=== PATIENT | male | born 1970 | race Caucasian/White ===

== ENCOUNTER 2023-12-11 11:18 | Emergency (ER) | payer OTHER, SELFPAY ==
[2023-12-11 11:22] VITALS: BP 146/96
[2023-12-11 12:13] VITALS: BP 145/84
--- NOTE | 2023-12-11 12:50 | ED.CVA ---
History of Present Illness
General
Chief Complaint: Dizziness
Source: patient
Exam Limitations: none
Time Seen by Provider: 12/11/23 12:27
Nursing documentation reviewed up to this point in time: agreed with
Onset of Stroke Symptoms
Onset of symptoms known: Yes
Date of onset of symptoms: 12/10/23
Time pt last seen normal is known: No
Travel History
Have you had any contact with someone who has COVID-19?: No
Do you have any symptoms of coronavirus? Fever > 100 degrees, chills, cough, shortness of breath, sore throat, loss of taste or smell, muscle aches, or headache?: No
History of Present Illness
History of Present Illness:
The patient is a 53-year-old man with a past medical history of hypertension, coronary artery disease and pao-nkojbyr-gabekdqgp diabetes who presents with sudden onset of dizziness that started yesterday at around 11 AM. Patient reports that the
dizziness has not gone away and has been constant. It is associated with nausea and occasional vomiting. Patient denies vision changes. He reports pressure behind his right eye which she describes as intermittent and currently gone. In addition,
he has had constant numbness in his right upper cheek but denies any other areas of numbness. He denies weakness. He denies fever and rash. He reports he has had vertigo in the past but never had associated cheek numbness. Patient denies a
history of smoking. He denies a history of stroke.
Past History
Past History
ED Past Medical History: CAD, HTN and NIDDM
ED Past Surgical History: Cardiac
Social History
Tobacco: Non-smoker
Alcohol: Occasional
Drug: None
Personal: Other
Living: with family
Employment: Other
Family History
Family History: Other
Review of Systems
Review of Systems
Allergies reviewed?: Yes
All Other Systems: ROS reviewed and negative except as documented in HPI and ROS
Constitutional: Reports no symptoms
EENT: Reports no symptoms
Respiratory: Reports no symptoms
Cardiac: Reports no symptoms
ABD/GI: Reports nausea and vomiting
: Reports no symptoms
Musculoskeletal: Reports no symptoms
Neurological: Reports dizzy and headache
Endocrine: Reports no symptoms
Hematologic/Lymphatic: Reports no symptoms
Psychiatric: Reports no symptoms
Phy Exam
Physical Exam
Physical Exam:
Physical Exam
General: no apparent distress, not acutely ill. Well appearing
Neck: supple. no meningeal signs. normal psoterior pharynx
Heart: s1/s2 regular rate and rhythm, no murmur. equal radial pulses.
Lungs: no acute respiratory distress. clear bilaterally
Abdomen: normal bowel sounds. not tender. no CVAT
Neuro: alert and orientedx3. no focal neurological deficits. Extraocular muscles intact. 5 out of 5 strength in all extremities. Normal [id number]. Cranial nerves equal and symmetric bilaterally. Isolated
diminished sensation of right upper cheek. Equal sensation in arms and legs bilaterally.
Skin: no rash
Psychiatric: well kept. interactive and cooperative
Extremities: no edema. no calf tenderness. negative homans. good distal pulses
Course
Orders/Labs/Results
Orders:
Orders
12/11/23 11:27
CT Head W/o Iv Contrast Urgent
Comment:
Reason For Exam: dizziness
12/11/23 12:39
Electrocardiogram (*1) Urgent
Reason for Study: Vertigo / Dizzy
EKG- Treatment ONCE
PT Consult [Pt Eval And Treat] Urgent
Activity Level: Out of Bed-Early Mobility
12/11/23 12:55
Alcohol Urgent
Cardiovascular Evaluation Urgent
Comment: ADD ON
Complete Blood Count/With Diff Urgent
Comprehensive Metabolic Panel Urgent
Erythrocyte Sed Rate Urgent
Comment: ADD ON
Ferritin Urgent
Comment: ADD ON
Folate Urgent
Comment: ADD ON
Glycohemoglobin (HgbA1c) Urgent
TSH Reflex To Free T4 Urgent
Comment: ADD ON
Vitamin B12 Urgent
Comment: ADD ON
12/11/23 13:15
Add On- LAB Routine
Comments:: Please add to today's labs or draw as routine
Tests Added?: TSH reflex, Ferritin, Folate, Vit. B12, ESR, UDS, EtOH
12/11/23 13:16
Consult Neurology [NEUROLOGY CONSULT] Urgent
Consulting Provider: Herberth Lynn
Was physician already notified: Yes
Reason for consult: dizzy
12/11/23 13:34
Prochlorperazine [Compazine] 10 mg IV NOW STA
dimenhyDRINATE 50 mg IV NOW STA
12/11/23 13:37
Meclizine [Antivert] 25 mg PO NOW STA
12/11/23 13:39
MR Brain Without Contrast Routine
Comment:
Reason For Exam: dizziness
Recent pill cam endoscopy?: No
12/11/23 13:41
MA [place] Routine
Comment:
Reason For Exam: intracranial stenosis
Recent pill cam endoscopy?: No
MA Neck With Contrast Routine
Comment:
Reason For Exam: stenosis
Recent pill cam endoscopy?: No
12/11/23 13:43
Add On- LAB Routine
Comments:: Please add to today's labs or draw as routine
Tests Added?: TSH reflex, Ferritin, Folate, Vit. B12, ESR
Lorazepam [Ativan] 1 mg PO NOW STA
12/11/23 13:59
Add On- LAB Routine
Tests Added?: lipid panel, hbA1c
12/11/23 15:28
Urine Drug Abuse Screen Routine
12/11/23 15:46
Lorazepam [Ativan] 1 mg .ROUTE .STK-MED ONE
12/11/23 22:00
Meclizine [Antivert] 25 mg PO Q8HPRN PRN
Abnormal Lab Results
12/11/23 12/11/23
12:55 12:57
MCV 79.5 L fL
(80.0-94.0)
MCHC 37.4 H g/dL
(33.0-37.0)
MPV 11.9 H fL
(7.4-10.4)
Absolute Lymphs (auto) 1.1 L 10^3/uL
(1.2-3.4)
Immature Gran % 0.6 H %
(0-0.5)
Neutrophils % 78.7 H %
(42.2-75.2)
Lymphocytes % 15.2 L %
(20.5-51.1)
Sodium 130 L mmol/L
(135-145)
BUN 25 H mg/dl
(9-20)
Glucose 302 H mg/dl
(70-99)
ALT 55 H U/L
(0-50)
Triglycerides 170 H mg/dl
(10-149)
Total Cholesterol 235 H mg/dl
(50-199)
VLDL Cholesterol, Calc 34 H mg/dl
(0-30)
POC Glucose 294 H mg/dl
(70-99)
12/11/23 12:55
12/11/23 12:55
Vital Signs
Initial and Last Documented VS:
Initial Vital Signs
Temp Pulse Resp BP Pulse Ox
97.9 F 81 16 146/96 98
12/11/23 11:22 12/11/23 11:22 12/11/23 11:22 12/11/23 11:22 12/11/23 11:22
Last Documented Vital Signs
Temp Pulse Resp BP Pulse Ox
97.9 F 110 16 130/71 99
12/11/23 11:22 12/11/23 18:25 12/11/23 18:25 12/11/23 18:25 12/11/23 18:25
MDM/Problems Addressed
Differential Diagnosis Includes:
Atypical migraine, benign positional vertigo, CVA
MDM/Problems Addressed:
Patient presents with acute dizziness and numbness of right cheek as well as pressure behind right eye
Chronic conditions affecting care: HTN and CAD
Acute Exacerbation and/or Progression of Chronic Illness:
Patient is acutely hypertensive, which may be contributing to his dizziness and headache
Acute Exacerbation and/or Progression of Chronic Illness: HTN
*Radiology
Radiology exam reviewed: radiology read reviewed
*Pulse Oximetry
Patient hypoxic: no
*EKG
Interpreted by ED Provider?: Yes
Interpretation: normal
Comparison EKG: changes noted
Rate: normal
Rhythm: sinus
[place]: normal axis
Interval: first degree heart block
QRS Pattern: normal QRS
Ischemia: no ischemia
*Finished Goods Stock Clerk Interpretation
Rate: normal
Interpretation: normal
Rhythm: sinus
*Critical Care Note
Total Time (30-74mins, 75-104mins- exclusive of procedures): Not Applicable
Data Reviewed
Review of Other/Old Records Reveals: Discharge Summary (Discharge summary reviewed from hospitalist from December 2014 when patient was admitted for uncontrolled high blood pressure and diabetes)
Source: patient
Patient Management
Discussion with other providers: Other (Dr Lynn)
Escalation/DeEscalation of care consider admission/obs:
Patient remains well-appearing for hours. He is walking around steadily. MRI report reviewed with Dr. Lewis from neurology who feels patient can safely go home. There is no sign of acute stroke. Symptoms are likely due to benign vertigo.
ED Attending Note
-
Portions of this chart may have been created with voice recognition software.� Occasional wrong word or��sound alike� substitutions may have occurred due to the inherent limitations of voice recognition software.
Discharge Plan
Departure
Patient Disposition: Home (Routine Discharge)
Date of Disposition: 12/11/23
Time of Disposition: 18:22
Patient with high blood pressure during this ER visit?: Yes
Condition: Good
Covid-19: Not Applicable
Discharge Problem:
Dizziness
Instructions: Dizziness, BLOOD PRESSURE
Prescriptions:
New
meclizine 50 mg tablet
50 mg PO BID PRN (Reason: dizziness) Qty: 14 0RF
prochlorperazine maleate [Compazine] 10 mg tablet
10 mg PO BID PRN (Reason: nausea and vomiting) Qty: 14 0RF
No Action
cyclobenzaprine 10 MG tablet
10 mg PO DAILYPRN PRN (Reason: muscle pain)
acetaminophen 325 MG tablet
650 mg PO Q4HPRN PRN (Reason: pain)
fexofenadine [Linnette] 180 MG tablet
180 mg PO DAILYPRN PRN (Reason: allergies)
exenatide microspheres [Bydureon] 2 MG suspension,extended rel recon
2 mg SQ .EVERY 2 WEEKS
oxycodone 5 MG tablet
5 mg PO Q4HPRN PRN (Reason: moderate pain) Qty: 14 0RF
hydrochlorothiazide 25 MG tablet
25 mg PO DAILY Qty: 30 0RF
carvedilol 3.125 MG tablet
3.125 mg PO BID Qty: 60 0RF
metformin 750 MG tablet extended release 24 hr
750 mg PO BID Qty: 60 0RF
insulin glargine [Lantus Solostar U-100 Insulin] 300 UNITS/3 ML insulin pen
10 units SC HS Qty: 1 0RF
Referrals:
Cristiano Lozano DO [Family Provider] -
Activity Restrictions/Additional Instructions:
Please follow up with physical therapy if your dizziness continues after another 24 hours. Call them at [phone] to schedule an appointment
Interventions
Interventions:
*Risk Screen - Suicide Last Done: 12/11/23 11:22
*General Assessment Last Done: 12/11/23 11:22
*Neglect/Abuse Screening Last Done: 12/11/23 11:22
ED- Fall Risk Assessment Last Done: 12/11/23 18:36
*ED COVID-19 Vaccine History Last Done: 12/11/23 12:19
*Nursing Disposition Last Done: 12/11/23 18:36
ED- Neurological Assessment Last Done: 12/11/23 11:34
ED- Cardiac Assessment Last Done: 12/11/23 12:57
ED Swallowing Screen Last Done: 12/11/23 14:00
Discharge Date and Time
Discharge Date/Time: 12/11/23 18:37
Print Language: SAMI
[2023-12-11 12:58] LABS: Glucose - Point of Care 294 mg/dl (70-99)
[2023-12-11 13:03] LABS: % Basophils 0.4 % (0-2); % Eosinophils 0.3 % (0-6); % Immature Granulocytes 0.6 % (0-0.5); % Lymphocytes 15.2 % (20.5-51.1); % Monocytes 4.8 % (1.7-9.3); % Neutrophils 78.7 % (42.2-75.2); Absolute Lymphocytes 1.1 10^3/uL (1.2-3.4); Absolute Monocytes 0.4 10^3/uL (0.1-0.6); Absolute Neutrophils 5.7 10^3/uL (1.4-6.5); Hematocrit 43.1 % (39.0-52.0); Hemoglobin 16.1 g/dL (13.0-18.0); Mean Corp Hgb Conc. 37.4 g/dL (33.0-37.0); Mean Corpuscular Hgb 29.7 pg (27.0-31.0); Mean Corpuscular Volume 79.5 fL (80.0-94.0); Mean Platelet Volume 11.9 fL (7.4-10.4); Nucleated Red Blood Cells % 0 % (-); Platelet Count 177 10^3/uL (130-400); Red Blood Cell Count 5.42 10^6/uL (4.70-6.10); Red Cell Dist. Width 12.9 % (11.5-14.5); White Blood Cell Count 7.3 10^3/uL (4.8-10.8)
--- NOTE | 2023-12-11 13:14 | CON.NEURO4 ---
Addendum entered and electronically signed by Herberth Lynn MD 12/11/23 14:29:
Studies reviewed.
I have personally examined the patient. I reviewed and agree with the CORK TIPPER's Note.
My addenda:
Awake, alert, interactive. No acute distress.
Speech intact.
Follows 2-step requests w/o difficulty. No tremor.
Extra-ocular movements grossly intact.
Facial movements full and symmetric. Hearing intact to normal conversational volume.
Normal UE movements bilaterally.
Neck: full ROM.
Chest: no dyspnea
Heart: no JVD
Ext: (-) Clubbing, (-) Cyanosis, (-) Edema
IMPRESSIONS/RECOMMENDATIONS:
Abrupt onset of dizziness which has been crescendo decrescendo and at the onset associated with head discomfort
Differential diagnosis includes migraine with aura (vestibular migraine) although the patient's worsening intermittently at times suggests an ongoing process which is unstable
Check MRI of brain with MRA head and neck to better evaluate for the possibility of stroke
Continue aspirin
Initiate clopidogrel without load, until better understanding of ischemic lesion by MRI of brain
Goal of tension as patient symptomatology is greater than 24 hours since onset
Provide prochlorperazine to remediate the patient's nausea
Provide meclizine 25 mg as the patient wishes to avoid to significant side effects with same previously
Physical therapy evaluations
Consider orthostatic blood pressures
D/W patient / family
All questions answered.
Will continue to follow patient.
Original Note:
Documented by User: Osiris Faustin NP 12/11/23 13:58
Consultation - Neurology 4
-
CONSULTING PHYSICIAN: Herberth Lynn MD
REFERRING PHYSICIAN: CELY/Dr. Patterson
DICTATED BY: RACHELLE Silva
DATE/TIME OF REQUEST: 12/11/23
DATE/TIME OF CONSULTATION: 12/11/23
Reason for Consultation: Dizziness
History of Present Illness:
This is a 53-year-old male who has presented to the hospital with report of dizziness, headache, and numbness. Patient reports that he was in his usual state yesterday morning (12/10/23). Around 1100 yesterday, he reports suddenly developing a
headache behind his right eye. Moments later he developed a dizzy sensation that he describes as 'light-headed.' And then he developed numbness around his mouth, nose, and below his right eye. His headache resolved but his dizziness and numbness has
continued, fluctuating in severity. The dizziness is constant and worsens with walking. When it is severe, his gait is off-balance and he cannot ambulate, but he denies falling. He reports constant nausea, he vomited once yesterday and twice today.
CT head was obtained on arrival to the ER and is negative for any acute abnormalities. Physical therapy evaluated the patient and did not find anything supportive of peripheral vertigo. His blood sugar is 301.
He denies any vision changes, speech/swallow difficulty, tinnitus, hearing changes, chest pain, palpitations, and shortness of breath. He reports having BPPV once in the past, that felt different than this. He felt weird after taking Dramamine in
the past but he tolerates meclizine. He had facial numbness once in the past when he had COVID, but it was not associated with a headache. He reports that his blood sugar has been this elevated in the past and was not associated with these symptoms.
He denies any history of TIA, stroke, migraine, recent illness, or changes in his medications. He is taking aspirin 81mg daily for cardiac purposes.
Past Medical History: HTN, CAD, NIDDM requiring insulin, BPPV
Surgical History: CABG, cholecystectomy
Family History: Reviewed and noncontributory.
Social History: Denies tobacco and illicit drug use. Occasional alcohol.
Allergies: No known allergies.
Home Medications: See below.
Review of Symptoms:
Patient denies any fever, chest pain, shortness of breath, or symptoms.
�Per the HPI.�All systems are reviewed negative except above.
Physical Exam:
The patient is afebrile, abdomen is nondistended, breathing is unlabored, skin is warm and dry, no edema.
NIH Stroke Scale:
I performed the NIH stroke scale on the patient on 12/11/23 at 1330. The patient scored 0 points on the NIH stroke scale assessment, which were assigned as follows: See below.
Neurologic Examination:
The patient is awake, alert and oriented x 3. He is able to follow commands and answer questions appropriately. There is no aphasia or dysarthria. On cranial nerve assessment, pupils are 3 mm bilateral, round and reactive to light and
accommodation. Visual mendoza are full. Extraocular movements are intact. There is no facial asymmetry. Hearing is intact bilaterally to normal conversation volume. Tongue palate and uvula are midline. Sternocleidomastoid strengths are full
bilaterally. Motor strengths are 5/5 bilateral upper and lower extremities on medical research [place] scale. There is no drift or involuntary movement noted. Deep tendon reflexes are 1+ bilateral upper and lower extremities and Babinski is absent
bilaterally. There was no extinction noted on double simultaneous stimulation. Coordination is intact by finger to nose bilaterally.
Lab Results: See below.
Neuro Imaging:
1. CT Head 12/11/23: No acute intracranial abnormality. Mild chronic senescent changes, as detailed above.
Differentials for the patient's presentation include:
1. Concern for small posterior ischemic infarct given significant stroke risk factors and persistence of symptoms.
2. Vestibular migraine possible.
3. No signs/symptoms less supportive of BPPV or vestibular neuritis.
Patient has the following risk factors for their symptoms: HTN, HLD, NIDDM
IV Tenecteplase/IAT candidacy: Not a candidate due to unclear diagnosis, outside of time window, NIHSS 0.
Recommendations:
-Continue aspirin 81mg daily.
-MRI brain noncontrast, MRA head/neck ordered/pending. Lorazepam 1mg on-call for MRI for claustrophobia.
-Provide prochlorperazine 10mg IV x1 now for headache. Provide meclizine 25mg PO now and q8hrs PRN dizziness.
-Goal normotension.
-If MRI brain demonstrates a stroke, LDL goal will be <70. Lipid panel pending.
-Goal normoglycemia, hbA1c is pending.
-Provide patient with a stroke education packet.
-NIHSS and neurological checks per unit guidelines.
-PT evaluations.
-DVT prophylaxis.
-Will follow pending results.
Discussed patient care with: Dr. Lynn, the patient, patient's spouse
Vital Signs and Labs
-
Vital Signs and Labs:
Vital Signs
Temp Pulse Resp BP Pulse Ox
97.9 F 86 18 145/84 98
12/11/23 11:22 12/11/23 12:15 12/11/23 12:15 12/11/23 12:13 12/11/23 12:15
Lab Results
12/11/23 12:55
12/11/23 12:55
Sodium 130 mmol/L (135-145) L 12/11/23 12:55
Potassium 4.3 mmol/L (3.5-5.1) 12/11/23 12:55
BUN 25 mg/dl (9-20) H 12/11/23 12:55
Glucose 302 mg/dl (70-99) H 12/11/23 12:55
Calcium 9.3 mg/dl (8.4-10.2) 12/11/23 12:55
Medications
-
Active Medications
Generic Name Dose Route Start Last Admin
Trade Name Freq PRN Reason Stop Dose Admin
Meclizine HCl 25 mg 12/11/23 22:00
Meclizine 25 Mg Tablet PO 01/08/24 21:59
Q8HPRN PRN
dizziness
Home Medications
�Medication �Instructions �Recorded
acetaminophen 325 mg tablet 650 mg PO Q4HPRN PRN pain 12/11/14
cyclobenzaprine 10 mg tablet 10 mg PO DAILYPRN PRN muscle pain 12/11/14
exenatide microspheres 2 mg 2 mg SQ .EVERY 2 WEEKS 12/11/14
subcutaneous extended release
suspension (Bydureon)
fexofenadine 180 mg tablet 180 mg PO DAILYPRN PRN allergies 12/11/14
(Linnette)
carvedilol 3.125 mg tablet 3.125 mg PO BID #60 tabs 12/16/14
hydrochlorothiazide 25 mg tablet 25 mg PO DAILY ##30 12/16/14
insulin glargine 100 unit/mL (3 10 units (0.1 mL) SC HS ##1 12/16/14
mL) subcutaneous pen (Lantus
Solostar U-100 Insulin)
metformin 750 mg tablet,extended 750 mg PO BID #60 tabs 12/16/14
release 24 hr
oxycodone 5 mg tablet 5 mg PO Q4HPRN PRN moderate pain 12/16/14
##14
NIH Stroke Score
Subsequent NIH Scale
Date of Subsequent NIH Scale: 12/11/23
Time of Subsequent NIH Scale: 13:30
NIH Stroke Score
Level of Consciousness: 0 - Alert
LOC Questions: 0-Answers both correctly
LOC Commands: 0-Performs both correctly
Best Horizontal Gaze: 0-Normal
Visual Mendoza: 0=Normal, no visual loss
Facial Palsy: 0=Normal, symmetrical
Motor - Right Arm: 0=No drift 10 seconds
Motor - Left Arm: 0=No drift 10 seconds
Motor - Right Le-No drift 5 seconds
Motor - Left Le-No drift 5 seconds
Limb Ataxia: 0-Absent
Sensation: 0-Normal
Best Language: 0-No aphasia
Dysarthria: 0-Normal
Extinction and Inattention: 0-No abnormality
Total Score:: 0

Documented by User: Herberth Lynn MD 12/11/23 14:16
NIH Stroke Score
NIH Stroke Score
Total Score:: 0
[2023-12-11 13:19] LABS: ALT (SGPT) 55 U/L (0-50); AST (SGOT) 33 U/L (17-59); Albumin 4.3 g/dl (3.5-5.0); Alkaline Phosphatase 62 U/L (38-126); Blood Urea Nitrogen 25 mg/dl (9-20); Calcium 9.3 mg/dl (8.4-10.2); Carbon Dioxide 24 mmol/L (22-30); Chloride 99 mmol/L (98-107); Glucose 302 mg/dl (70-99); Potassium 4.3 mmol/L (3.5-5.1); Sodium 130 mmol/L (135-145); Total Bilirubin 0.8 mg/dl (0.2-1.3); Total Protein 7.2 g/dl (6.3-8.2); eGFR > 60.00
[2023-12-11 13:46] LABS: Alcohol None Detected
[2023-12-11 13:49] LABS: Erythrocyte Sed Rate 15 mm/hour (0-20)
[2023-12-11 14:00] VITALS: BP 127/77
[2023-12-11] MEDS: COMPAZINE 10 MG IV (14:04)
[2023-12-11] MEDS: ANTIVERT 25 MG PO (14:04)
[2023-12-11 14:42] LABS: TSH Reflex To Free T4 0.78 uIU/ml (0.47-4.68)
[2023-12-11 14:48] LABS: Total Cholesterol 235 mg/dl (50-199); Triglyceride 170 mg/dl (10-149); Very Low Density Lipoprotein 34 mg/dl (0-30)
[2023-12-11 14:57] LABS: HDL Cholesterol 34 mg/dl; LDL Cholesterol, Calculated 167 mg/dl
[2023-12-11 15:17] LABS: Folate 9.3 ng/ml (2.76-20); Vitamin B12 503 pg/ml (239-931)
[2023-12-11 15:28] VITALS: BP 129/67
[2023-12-11] MEDS: ATIVAN 1 MG PO (15:48)
[2023-12-11 15:52] LABS: Amphetamines Negative (Negative); Barbiturates Negative (Negative); Benzodiazepines Negative (Negative); Buprenorphine Negative (Negative); Cocaine Negative (Negative); Marijuana Negative (Negative); Methadone Negative (Negative); Methamphetamines Negative (Negative); Opiates Negative (Negative); Phencyclidine Negative (Negative); Tricyclic Antidepressants Negative (Negative)
[2023-12-11 18:25] VITALS: BP 130/71
== END 2023-12-11 18:37 | disposition home or self-care (01) ==
LOC: EMR 11:18
PROVIDERS: CONSULT PHYSICIAN Psychiatry & Neurology Neurology; EMERGENCY PHYSICIAN Emergency Medicine; FAMILY PHYSICIAN Family Medicine
DX: R42 Dizziness and giddiness (principal); R20.0 Anesthesia of skin; R11.2 Nausea with vomiting, unspecified; R51.9 Headache, unspecified; I10 Essential (primary) hypertension; I25.10 Atherosclerotic heart disease of native coronary artery without angina pectoris; E11.9 Type 2 diabetes mellitus without complications; Z95.1 Presence of aortocoronary bypass graft; Z79.82 Long term (current) use of aspirin; Z90.49 Acquired absence of other specified parts of digestive tract; Z86.16 Personal history of COVID-19
CPT/HCPCS: 99285; 96374; 70450; 70544; 70548; 70551; 80053; 80061; 80306; 82077; 82607; 82728; 82746; 82962; 83036; 84443; 85025; 85652; 93005; A9585

== ENCOUNTER → 2024-11-14 11:05 | Outpatient (REF) | payer OTHER, SELFPAY | LOC: RAD 11:05 | PROVIDERS: ATTENDING PHYSICIAN Family Medicine; OTHER PHYSICIAN Internal Medicine Hematology & Oncology | DX: K76.0 Fatty (change of) liver, not elsewhere classified (principal) | CPT/HCPCS: 76700 ==